=== PATIENT | female | born 1990 | race Caucasian/White ===

== ENCOUNTER → 2020-04-29 10:24 | Outpatient (CLI) | payer OTHER, SELFPAY ==
--- NOTE | ~2020-04-29 | US_ITS ---
EXAMINATION: US transvaginal DATE: 04/29/2020 10:52 INDICATION: Left pelvic pain Comparison:03/31/2015 TECHNIQUE: Multiple endovaginal sonographic images of the pelvis performed. FINDINGS: The uterus measures 6.9 x 3.3 x 4.1 cm. The endometrial complex measures 7 mm. The right ovary measures 3.7 x 2.2 x 3.2 cm and the left ovary measures 4.3 x 2.2 x 3.6 cm. There ar e small follicles in each ovary. There is no free fluid in the pelvis. There are no abnormal masses seen on either side. IMPRESSION: 1. Unremarkable pelvic ultrasound. Reviewed, dictated and finalized at location B.
== END ==
PROVIDERS: PCP Family Medicine; Visit Provider Nurse Practitioner
DX: R10.2 Pelvic and perineal pain (principal)
CPT/HCPCS: 76830

== ENCOUNTER → 2021-09-11 11:45 | Outpatient (CLI) | payer OTHER, SELFPAY ==
--- NOTE | ~2021-09-11 | US_ITS ---
EXAMINATION: US pelvic complete DATE: 09/11/2021 12:12 INDICATION: History of ovarian cysts TECHNIQUE: Multiple transabdominal and endovaginal sonographic images of the pelvis were obtained. COMPARISON: 04/09/2020 FINDINGS: The uterus measures 7.6 x 3.1 x 4.3 cm. The endometrial complex measures 9 mm. The right ov cruzito measures 4.3 x 3.6 x 4.8 cm. There is a 3.3 x 3.0 cm hypoechoic mass of the right ovary with a re ticular internal echoes. The left ovary measures 3.2 x 2.8 x 4.1 cm. There is normal vascular flow in the ovaries. There is no free fluid in the pelvis. IMPRESSION: 1. Likely 3.3 cm hemorrhagic cyst of the left ovary. Reviewed, dictated and finalized at location B. RT LOAD EXPEDITER
== END ==
PROVIDERS: Visit Provider Nurse Practitioner
DX: N83.202 Unspecified ovarian cyst, left side (principal)
CPT/HCPCS: 76856

== ENCOUNTER → 2022-07-10 12:44 | Outpatient (CLI) | payer OTHER, SELFPAY ==
--- NOTE | ~2022-07-10 | US_ITS ---
Pelvic ultrasound. Clinical History: First trimester , evaluate for viability Technique: Realtime transabdominal and transvaginal scanning of the pelvis was performed. Color flow Doppler and Doppler spectral analysis were performed. Findings: The uterus is anteverted, and contains an intrauterine gestation. Lolo-rump length of 1.9 cm corresponds to an estimated gestational age of 8 weeks 3 days. heart rate is 176 bpm. The right ovary measures 4.1 x 3.1 x 2.5 cm. No significant right ovarian or adnexal mass is seen. The left ovary measures 3.1 x 1.8 x 3.3 cm. No significant left ovarian or adnexal mass is seen. There is no evidence of free fluid in the cul de sac. Impression: Live intrauterine gestation with estimated gestational age of 8 weeks 3 days. heart rate is 176 bpm. Reviewed, dictated and finalized at [facility]. ER PRINTING SUPERVISOR Impression: Live intrauterine gestation with estimated gestational age of 8 weeks 3 days. F etal heart rate is 176 bpm.
== END ==
PROVIDERS: PCP Family Medicine; Visit Provider Advanced Practice Midwife
DX: O36.80X0 Pregnancy with inconclusive fetal viability, not applicable or unspecified (principal); Z3A.08 8 weeks gestation of pregnancy
CPT/HCPCS: 76801